=== PATIENT | female | born 1970 | race African-American/Black ===

== ENCOUNTER 2020-11-10 09:37 | Emergency (ER) | payer MEDICAID, SELFPAY ==
--- NOTE | ~2020-11-10 | CT_ITS ---
EXAMINATION: CT ABDOMEN AND PELVIS WITH CONTRAST CLINICAL INFORMATION: Lower abdominal pain and hematuria. COMPARISON: None TECHNIQUE: Multidetector volumetric images were obtained from the superior aspect of the liver through the pubic symphysis following administration 85 mL of Omnipaque 350 intravenous contrast. Sagittal and coronal reformatted images were obtained on the technologist's workstation. Oral contrast: No This CT examination was performed using dose optimization techniques as appropriate, variously including the following: *Automated exposure control *Adjustment of mA and/or kV according to patient size (this includes techniques or standardized protocols for targeted exams where dose is matched to indication/reason for exam; i.e. extremities or head) *Use of iterative reconstruction technique DLP: 479 mGy-cm FINDINGS: LUNG BASES: The visualized lung bases are unremarkable. Bilateral breast implants are noted. LIVER, GALLBLADDER, AND BILIARY TREE: The liver is normal in size, shape, and attenuation. At the junction of hepatic segments 4A and 4B (3:22), there is a 4 mm low-attenuation probable cyst or tiny hemangioma, too small to fully characterize with CT. No biliary ductal dilatation is present. The gallbladder is unremarkable with no evidence of radiopaque gallstones, gallbladder wall thickening, or obvious pericholecystic inflammatory changes. PANCREAS: Unremarkable. SPLEEN: Unremarkable. ADRENAL GLANDS: Unremarkable. KIDNEYS AND URETERS: The kidneys are normal in size, shape, and attenuation. No hydronephrosis, hydroureter, or calculi seen. No perinephric stranding. BLADDER: Largely decompressed and suboptimally evaluated. Bladder wall irregularity and thickening is questioned. GASTROINTESTINAL TRACT: There is a small hiatus hernia. The small and large bowel are unremarkable. No obstruction, free intraperitoneal air or abscess is seen. No significant diverticulosis or diverticulitis is seen. The appendix is unremarkable. ABDOMINAL WALL: No significant hernia is appreciated. LYMPH NODES: There are shotty mesenteric, pericecal and para-aortic lymph nodes. There are mildly enlarged bilateral external iliac lymph nodes, the largest on the right showing short axis diameters of 1.1 cm and 1.0 cm (3:76 and 77), and on the left 1.0 cm (3:75). There are shotty, nonpathologically enlarged bilateral inguinal lymph nodes. VASCULAR: Unremarkable. PELVIC VISCERA: The uterus and adnexa are unremarkable. OSSEOUS STRUCTURES: Unremarkable. CT/CT abdomen pelvis w con IMPRESSION: 1. No bowel obstruction, free intraperitoneal air or abscess is seen. There is no appendicitis or diverticulitis. 2. A 4 mm low-attenuation probable cyst or benign hemangioma is seen towards the junction of hepatic segments 4A and 4B. This is of doubtful clinical significance. If of clinical concern (i.e., history of hepatocellular disease or known malignancy), this can be further evaluated with ultrasound or MRI. 3. No urinary calculus or obstructive uropathy is seen. 4. There are mildly enlarged bilateral external iliac chain lymph nodes. These are nonspecific, and these should be managed on a clinical basis. Continued attention on imaging follow-up is recommended. 5. Question urinary bladder wall thickening and irregularity, with imaging significantly limited by suboptimal distention. Recommend clinical correlation, including correlation with the patient's most recent urinalysis.
[2020-11-10 09:57] VITALS: BP 120/84; PULSE 75; RESP 16; TEMP 36.9; O2SAT 100; BMI 27.8
[2020-11-10 10:32] LABS: Basophils Percent Auto 0.3 % (0-2); Eosinophils Absolute Auto 0.1 X10*3/uL (0.0-0.4); Eosinophils Percent Auto 0.8 % (0-4); Hematocrit 36.9 % (37-47); Hemoglobin 11.8 g/dl (12.0-16.0); Imm Gran Abs Auto 0.02 X10*3/uL (0.00-0.03); Imm Gran Pct Auto 0.3 % (0.0-0.4); Lymphocytes Absolute Auto 1.1 X10*3/uL (1.2-4.9); Lymphocytes Percent Auto 17.6 % (20-40); MANUAL DIFF FLAG NO; Mean Corpuscular Volume 84.4 fL (80-98); Mean Platelet Volume 9.5 fL (9.4-12.3); Monocytes Absolute Auto 0.3 X10*3/uL (0.1-1.2); Monocytes Percent Auto 4.2 % (2-11); Neutrophils Absolute Auto 4.7 X10*3/uL (2.0-8.3); Neutrophils Percent Auto 76.8 % (45-73); Platelet Count 280 X10*3/uL (160-400); Red Blood Count 4.37 X10*6/uL (4.20-5.50); Red Cell Distribution Width 13.1 % (11.0-16.0); White Blood Count 6.1 X10*3/uL (4.8-10.8)
[2020-11-10 10:55] LABS: INTERNATIONAL NORM RATIO 1.2 (0.9-1.1); Prothrombin Time 13.2 SEC (9.9-13.0)
[2020-11-10 10:57] LABS: Alanine Aminotransferase 26 U/L (0-31); Albumin Level 4.2 g/dL (3.5-5.0); Alkaline Phosphatase 107 U/L (39-117); Anion Gap 11 (12-20); Aspartate Amino Transferase 27 U/L (5-31); Bilirubin Total 0.8 mg/dL (0.0-1.0); Blood Urea Nitrogen 10 mg/dL (9-16); Calcium 9.5 mg/dL (8.4-10.2); Carbon Dioxide 28 mmol/L (22-29); Chloride 102 mmol/L (96-108); Creatinine Clr Calc Pharmacy 67.2; Estimated Glomerular Filt Rate > 60; Glucose Random 91 mg/dL (60-115); Magnesium 2.1 mg/dL (1.6-2.6); Potassium 4.1 mmol/L (3.3-5.1); Sodium 137 mmol/L (135-145); Total Protein 7.9 g/dL (6.5-8.0)
[2020-11-10 11:12] VITALS: BP 111/80; PULSE 77; RESP 16; TEMP 36.4; O2SAT 98
[2020-11-10 11:14] LABS: Glucose Urine UA 100 MG/DL (NEG); Leukocyte Esterase Urine 2+ (NEG); Nitrite Urine POS (NEG); Specific Gravity - Urine 1.015 (1.005-1.025); UACC Culture Trigger YES; Urine Blood 3+ (NEG); Urine Ketones 15 MG/DL (NEG); Urine Protein 3+ MG/DL (NEG-TRACE)
[2020-11-10 11:17] LABS: Appearance Urine CLOUDY; Color Urine RED
[2020-11-10 11:23] LABS: RBC Urine TNTC /HPF (0); Squamous Epithelial Cell Urine TRACE /LPF; WBC Urine 0-2 /HPF (0-4)
[2020-11-10 11:24] LABS: Renal Epithelial Cells Urine 1+ /LPF
[2020-11-10] MEDS: iohexoL 350 MG/ML 100 ML INFUS..BTL 85 ML IV (11:39)
--- NOTE | 2020-11-10 12:10 | ED.FEMALEGU ---
HPI - Female Genitourinary General Chief complaint: Urogenital-Female Stated complaint: vaginal bleeding Time Seen by Provider: 11/10/20 09:59 Source: patient Mode of arrival: ambulatory Limitations: no limitations History of Present Illness HPI Narrative: 50-year-old female with a past medical history of genital herpes presenting to the ED with complaints of suprapubic abdominal cramping with associated dysuria/hematuria and lower back pain since 03:00am. Reports that she was recently seen at [facility] on Monday for rash that she noticed was starting on her face and arms when she went there they placed her on antifungal creams and also antiviral acyclovir for possible herpes rash although patient reports no symptomatic relief in the rash is actually worsening. She reports she is sexually active with a new male for the past month unprotected. Although she denies any thoughts of STDs. She denies any headaches, dizziness, nausea/vomiting, chest pain, shortness of breath, dyspnea on exertion, orthopnea, palpitations, abnormal vaginal discharge, diarrhea, constipation, black or bloody stools or any other symptoms complaints or concerns at this time. MD elicited complaint: dysuria, pelvic pain and back pain Pertinent past history: other (General herpes) Onset (ago): hour(s) (Prior to arrival) Location of symptoms: suprapubic Severity: mild Female Urogenital Radiation: Non-Radiating Quality of pain: aching Consistency: constant Vaginal discharge: none Urinary symptoms: Dysuria, Urgency, Frequency and Hematuria Exacerbating factors: urination Relieving factors: none Associated symptoms: abdominal pain and rash Treatment prior to arrival: none Sexual activity: Yes and New Sexual Partners Patient : No Related Data Previous Rx's Medication Instructions Recorded cefuroxime axetil 500 mg tablet 500 mg PO BID 7 Days #14 tab 11/10/20 doxycycline hyclate 100 mg tablet 100 mg PO BID 21 Days #42 tab 11/10/20 Allergies Allergy/AdvReac Type Severity Reaction Status Date / Time prochlorperazine AdvReac Agitated Verified 11/10/20 10:00 [From Compazine] Review of Systems Review of Systems: Constitutional : Positive chills/subjective fevers, No Weight loss, No Night Sweats, No Fatigue, No Malaise ENT/Mouth: No ear pain, No sore throat, No Difficulty swallowing Cardiovascular : No Chest Pain, No SOB, No Dyspnea on Exertion, No Orthopnea, No Edema, No Palpitations Respiratory : No Cough, No Sputum, No Wheezing, No Dyspnea Gastrointestinal : Positive abdominal pain, No Nausea, No Vomiting, No Diarrhea, No blood streaked emesis, No coffee-ground emesis, No gross hematemesis, No blood streak stool, No gross hematochezia, No Melena Genitourinary : Positive Dysuria/hematuria/urinary frequency/urgency, No irregular bleeding, No Urinary Incontinence, No Flank Pain Musculoskeletal : No joint pain, No Myalgias, No Joint Swelling Skin : Positive Rash, No Skin Lesions Neuro : No Weakness, No Numbness, No Paresthesias, No Loss of Consciousness, NoDizziness, No Headache Psych : No Social Issues, Heme/Lymph: No Bruising, No Bleeding,No Lymphadenopathy Endocrine : No Polyuria, No Polydipsia, No Temperature Intolerance Yes all other systems are reviewed and are negative [facility] Past Medical History Attestation statement: The following information was validated with the patient. Surgical History H/O: hysterectomy Hx of breast surgery Social History Social History Advance Directives: No Advance Directives Information Provided: No Patient : No Physical Exam Vital Signs: Vital Signs: Last Vital Signs Temp 97.5 F 11/10/20 11:12 Pulse 77 11/10/20 11:12 Resp 16 11/10/20 11:12 BP 111/80 11/10/20 11:12 Pulse Ox 98 11/10/20 11:12 Body Mass Index 27.8 vital signs have been reviewed as normal and appeared to be correct. Blood pressure normal. Heart rate normal. Respiration rate normal. Temperature normal. Oxygen saturation normal. Appearance: Alert. Oriented X3. No acute distress. Head: Normal external exam. Normocephalic. Eyes: PERRLA. EOMI. Conjunctiva and sclera normal. Eyelids normal. ENT: Pharynx normal. Uvula midline. Moist mucous membranes. Neck: Normal inspection. Neck supple. FROM. No adenopathy. No meningeal signs. CVS: Normal heart rate and rhythm. Heart sound normal. No murmurs noted. Pulses normal throughout. Respiratory: No respiratory distress. Painless inspiration. Breath sounds normal. No wheezes/rales/rhonchi noted. Chest nontender. No accessory muscle usage noted or decreased air movement noted. Abdomen: Soft and mild tenderness to palpation suprapubically. Nondistended. No guarding. No rigidity. Bowel sounds normal in all 4 quadrants. No distention noted. No organomegaly noted. No visible injury noted. No rebound tenderness. Negative Rovsing sign. Negative obturator's sign. Negative psoas sign. Negative Hammonds sign. Back: No CVA tenderness. Full range of motion noted. Skin: Skin warm and dry. Normal skin color. Normal skin turgor. Scattered on the patient's bilateral arms and buttocks there are dark red almost purple colored round blanchable rash is possibly consistent with Lyme disease. No lesions/lacerations noted. Extremities: Extremities exhibit normal range of motion. Extremities nontender. Neuro: Oriented X 3. No motor deficit. No sensory deficit. Reflexes normal. Normal steady gait. Course Course Course Narrative: 10:15am - 50-year-old female with a past medical history of genital herpes presenting to the ED with complaints of suprapubic abdominal cramping with associated dysuria/hematuria and lower back pain since 03:00am. Reports that she was recently seen at [facility] on Monday for rash that she noticed was starting on her face and arms when she went there they placed her on antifungal creams and also antiviral acyclovir for possible herpes rash although patient reports no symptomatic relief in the rash is actually worsening. She reports she is sexually active with a new male for the past month unprotected. Although she denies any thoughts of STDs. Plan: Labs, UA, CT scan abdomen and pelvis with IV contrast, gonorrhea/chlamydia urine, syphilis and Lyme titertesting then re-evaluate. Reevaluation(s) Reevaluation #1: - Labs reviewed and pt c mild anemia. All other labs are within normal limits. UA with positive nitrates consistent with UTI. - CT scan abdomen and pelvis with IV contrast revealed a possible cyst or hemangioma toward the junction of hepatic segments. She also noted to have enlarged lymph nodes otherwise no other acute processes. - therefore I discussed this patient with both Dr. Rogers and Dr. Peralta and we all decided to tx patient with doxycycline for possible Lyme and Ceftin for UTI. - patient has pending lab results if any are positive I told her that we would contact her. I instructed her to return if any new or worsening symptoms to follow up with her primary care provider. Patient understands agrees with this plan. Time: 13:00 MDM - Female Genitourinary Medical Records Attestation: I reviewed the patient's medical records. Lab Data Attestation: I reviewed the patient's lab results. Result diagrams: 11/10/20 10:21 11/10/20 10:24 Labs: Lab Results 11/10/20 11/10/20 11/10/20 Range/Units 10:21 10:21 10:24 WBC 6.1 (4.8-10.8) X10*3/uL RBC 4.37 (4.20-5.50) X10*6/uL Hgb 11.8 L (12.0-16.0) g/dl Hct 36.9 L (37-47) % MCV 84.4 (80-98) fL MCH 27.0 (27.0-33.0) pg MCHC 32.0 (31.0-35.0) g/dl RDW 13.1 (11.0-16.0) % Plt Count 280 (160-400) X10*3/uL MPV 9.5 (9.4-12.3) fL Immature Gran % (Auto) 0.3 (0.0-0.4) % Neut % (Auto) 76.8 H (45-73) % Lymph % (Auto) 17.6 L (20-40) % [place] % (Auto) 4.2 (2-11) % Eos % (Auto) 0.8 (0-4) % Baso % (Auto) 0.3 (0-2) % Lymph # (Auto) 1.1 L (1.2-4.9) X10*3/uL [place] # (Auto) 0.3 (0.1-1.2) X10*3/uL Eos # (Auto) 0.1 (0.0-0.4) X10*3/uL Baso # (Auto) 0.0 (0.0-0.2) X10*3/uL Abs Immat Gran (auto) 0.02 (0.00-0.03) X10*3/uL Absolute Neuts (auto) 4.7 (2.0-8.3) X10*3/uL Absolute Nucleated RBC 0.000 (0.0-0.012) X10*3/uL Nucleated RBC % (auto) 0.0 (0.0-0.2) /100WBC PT 13.2 H (9.9-13.0) SEC INR 1.2 H (0.9-1.1) Sodium 137 (135-145) mmol/L Potassium 4.1 (3.3-5.1) mmol/L Chloride 102 (96-108) mmol/L Carbon Dioxide 28 (22-29) mmol/L Anion Gap 11 L (12-20) BUN 10 (9-16) mg/dL Creatinine 0.92 (0.5-1.4) mg/dL Estim Creat Clear Calc 67.2 Estimated GFR > 60 Random Glucose 91 (60-115) mg/dL Lactic Acid (0.5-2.0) mmol/L Calcium 9.5 (8.4-10.2) mg/dL Magnesium 2.1 (1.6-2.6) mg/dL Total Bilirubin 0.8 (0.0-1.0) mg/dL AST 27 (5-31) U/L ALT 26 (0-31) U/L Alkaline Phosphatase 107 (39-117) U/L Total Protein 7.9 (6.5-8.0) g/dL Albumin 4.2 (3.5-5.0) g/dL Urine Color Urine Appearance Urine pH (5.0-8.0) Ur Specific [place] (1.005-1.025) Urine Protein (NEG-TRACE) MG/DL Urine Glucose (UA) (NEG) MG/DL Urine Ketones (NEG) MG/DL Urine Blood (NEG) Urine Nitrite (NEG) Ur Leukocyte Esterase (NEG) Urine RBC (0) /HPF Urine WBC (0-4) /HPF Ur Squamous Epith Cells /LPF Ur Renal Epithelial Cell /LPF Urine Bacteria /LPF Chlam trachomat DNA PCR (Not Detect.) N.gonorrhoeae DNA (PCR) (Not Detect.) 11/10/20 11/10/20 11/10/20 Range/Units 10:24 11:04 11:05 WBC (4.8-10.8) X10*3/uL RBC (4.20-5.50) X10*6/uL Hgb (12.0-16.0) g/dl Hct (37-47) % MCV (80-98) fL MCH (27.0-33.0) pg MCHC (31.0-35.0) g/dl RDW (11.0-16.0) % Plt Count (160-400) X10*3/uL MPV (9.4-12.3) fL Immature Gran % (Auto) (0.0-0.4) % Neut % (Auto) (45-73) % Lymph % (Auto) (20-40) % [place] % (Auto) (2-11) % Eos % (Auto) (0-4) % Baso % (Auto) (0-2) % Lymph # (Auto) (1.2-4.9) X10*3/uL [place] # (Auto) (0.1-1.2) X10*3/uL Eos # (Auto) (0.0-0.4) X10*3/uL Baso # (Auto) (0.0-0.2) X10*3/uL Abs Immat Gran (auto) (0.00-0.03) X10*3/uL Absolute Neuts (auto) (2.0-8.3) X10*3/uL Absolute Nucleated RBC (0.0-0.012) X10*3/uL Nucleated RBC % (auto) (0.0-0.2) /100WBC PT (9.9-13.0) SEC INR (0.9-1.1) Sodium (135-145) mmol/L Potassium (3.3-5.1) mmol/L Chloride (96-108) mmol/L Carbon Dioxide (22-29) mmol/L Anion Gap (12-20) BUN (9-16) mg/dL Creatinine (0.5-1.4) mg/dL Estim Creat Clear Calc Estimated GFR Random Glucose (60-115) mg/dL Lactic Acid 1.0 (0.5-2.0) mmol/L Calcium (8.4-10.2) mg/dL Magnesium (1.6-2.6) mg/dL Total Bilirubin (0.0-1.0) mg/dL AST (5-31) U/L ALT (0-31) U/L Alkaline Phosphatase (39-117) U/L Total Protein (6.5-8.0) g/dL Albumin (3.5-5.0) g/dL Urine Color RED Urine Appearance CLOUDY Urine pH 7.0 (5.0-8.0) Ur Specific [place] 1.015 (1.005-1.025) Urine Protein 3+ H (NEG-TRACE) MG/DL Urine Glucose (UA) 100 H (NEG) MG/DL Urine Ketones 15 (NEG) MG/DL Urine Blood 3+ H (NEG) Urine Nitrite POS H (NEG) Ur Leukocyte Esterase 2+ H (NEG) Urine RBC TNTC H (0) /HPF Urine WBC 0-2 (0-4) /HPF Ur Squamous Epith Cells TRACE /LPF Ur Renal Epithelial Cell 1+ /LPF Urine Bacteria NONE /LPF Chlam trachomat DNA PCR NOT DETECTED (Not Detect.) N.gonorrhoeae DNA (PCR) NOT DETECTED (Not Detect.) Imaging Data CT scan of abdomen pelvis IV contrast: Attestation: I personally reviewed and interpreted this imaging study as follows: Radiologist's impression: FINDINGS: LUNG BASES: The visualized lung bases are unremarkable. Bilateral breast implants are noted. LIVER, GALLBLADDER, AND BILIARY TREE: The liver is normal in size, shape, and attenuation. At the junction of hepatic segments 4A and 4B (3:22), there is a 4 mm low-attenuation probable cyst or tiny hemangioma, too small to fully characterize with CT. No biliary ductal dilatation is present. The gallbladder is unremarkable with no evidence of radiopaque gallstones, gallbladder wall thickening, or obvious pericholecystic inflammatory changes.? PANCREAS: Unremarkable.? SPLEEN: Unremarkable.? ADRENAL GLANDS: Unremarkable.? KIDNEYS AND URETERS: The kidneys are normal in size, shape, and attenuation. No hydronephrosis, hydroureter, or calculi seen. No perinephric stranding. ? BLADDER: Largely decompressed and suboptimally evaluated. Bladder wall irregularity and thickening is questioned. GASTROINTESTINAL TRACT: There is a small hiatus hernia. The small and large bowel are unremarkable. No obstruction, free intraperitoneal air or abscess is seen. No significant diverticulosis or diverticulitis is seen. The appendix is unremarkable.? ABDOMINAL WALL: No significant hernia is appreciated.? LYMPH NODES: There are shotty mesenteric, pericecal and para-aortic lymph nodes. There are mildly enlarged bilateral external iliac lymph nodes, the largest on the right showing short axis diameters of 1.1 cm and 1.0 cm (3:76 and 77), and on the left 1.0 cm (3:75). There are shotty, nonpathologically enlarged bilateral inguinal lymph nodes. VASCULAR: Unremarkable. PELVIC VISCERA: The uterus and adnexa are unremarkable.? OSSEOUS STRUCTURES: Unremarkable.? CT/CT abdomen pelvis w con IMPRESSION: ? 1. No bowel obstruction, free intraperitoneal air or abscess is seen. There is no appendicitis or diverticulitis. ? 2. A 4 mm low-attenuation probable cyst or benign hemangioma is seen towards the junction of hepatic segments 4A and 4B. This is of doubtful clinical significance. If of clinical concern (i.e., history of hepatocellular disease or known malignancy), this can be further evaluated with ultrasound or MRI. ? 3. No urinary calculus or obstructive uropathy is seen. ? 4. There are mildly enlarged bilateral external iliac chain lymph nodes. These are nonspecific, and these should be managed on a clinical basis. Continued attention on imaging follow-up is recommended. ? 5. Question urinary bladder wall thickening and irregularity, with imaging significantly limited by suboptimal distention. Recommend clinical correlation, including correlation with the patient's most recent urinalysis. Critical Care Time Critical Care Time Critical Care Time: Yes Total Critical Care Time: 60 Attestation: I personally attest to this time spent taking care of the patient Discharge Plan Discharge Clinical Impression: Urinary tract infection, Erythema migrans (Lyme disease) Patient Disposition: Home, Self-Care Instructions: Lyme Disease (ED), Urinary Tract Infection in Women (ED), Tick Bite (ED) Additional Instructions: You have pending lab results if any are positive you will be contacted. Prescriptions: New doxycycline hyclate 100 mg tablet 100 mg PO BID 21 Days Qty: 42 RF: 0 cefuroxime axetil 500 mg tablet 500 mg PO BID 7 Days Qty: 14 RF: 0 Referrals: Physician,Unknown [Primary Care Provider] - 2 days (your pcp) Stand Alone Forms: Work/School Release Print Language: Irish
[2020-11-10 12:55] LABS: CT PCR NOT DETECTED (Not Detect.); NG PCR NOT DETECTED (Not Detect.)
[2020-11-10] MEDS: Phenazopyridine HCL 200 MG TABLET PO (13:38)
[2020-11-10 13:56] LABS: HCG Quantitative 3 mIU/mL
[2020-11-11 08:32] LABS: Lyme Abs Screen <0.90 index
[2020-11-11 09:05] LABS: Syphilis Screen Nonreactive (Nonreactive)
== END 2020-11-10 13:41 | disposition home or self-care (01) ==
PROVIDERS: Physician Assistant Medical; Emergency Provider Internal Medicine
DX: N39.0 Urinary tract infection, site not specified (principal); A69.20 Lyme disease, unspecified; R10.30 Lower abdominal pain, unspecified
CPT/HCPCS: 36415; 74177; 80053; 81001; 83605; 83735; 84702; 85025; 85610; 86617; 86618; 86780; 87040; 87086; 87491; 87591; 99284; Q9967

== ENCOUNTER → 2021-05-11 11:20 | Outpatient (BNVA) | payer MEDICAID, SELFPAY | PROVIDERS: PCP Advanced Practice Midwife; Visit Provider Obstetrics & Gynecology | DX: R87.620 Atypical squamous cells of undetermined significance on cytologic smear of vagina (ASC-US) (principal); R87.811 Vaginal high risk human papillomavirus (HPV) DNA test positive | CPT/HCPCS: 57420 ==

== ENCOUNTER 2021-05-24 13:17 | Outpatient (REF) | payer MEDICAID, SELFPAY ==
--- NOTE | ~2021-05-24 | MM_ITS ---
EXAMINATION: MM SCREENING DIGITAL BREAST TOMOSYNTHESIS, BILATERAL CLINICAL INFORMATION: Screening. Asymptomatic. The lifetime risk of breast cancer based on the Tyrer-Cuzick Model is 6%. COMPARISON: Mammography: 09/19/2018, 08/16/2017, 01/08/2016. TECHNIQUE: Digital mammography is performed in craniocaudal and mediolateral oblique views along with computer-aided detection (CAD). Digital breast tomosynthesis is performed in implant-displaced craniocaudal and implant-displaced mediolateral oblique views along with computer-aided detection (CAD). Synthesized 2D images are generated from the tomosynthesis. FINDINGS: There are scattered areas of fibroglandular density (ACR BI-RADS breast composition Category b). There are bilateral implants. Implant contours are smooth and similar to prior studies. Parenchymal pattern is similar to prior exams and there is no interval mass or architectural abnormality or abnormal calcifications. Skin contours are smooth. There are chronic bilateral prominent axillary nodes. Addendum from prior report 09/19/2018 notes history of outside lymph node tissue sampling yielding benign follicular hyperplasia. MM/MM tomosynthesis screen imp BI IMPRESSION: No significant changes from prior studies. ASSESSMENT: BI-RADS 2: Benign RECOMMENDATION: Routine annual mammography screening. This patient's information was entered into a reminder system with a target due date for their next mammogram.
== END 2021-05-24 13:18 | disposition home or self-care (01) ==
LOC: HO.MAMMO 13:17
PROVIDERS: PCP Advanced Practice Midwife; Visit Provider Advanced Practice Midwife
DX: Z12.31 Encounter for screening mammogram for malignant neoplasm of breast (principal)
CPT/HCPCS: 77063; 77067

== ENCOUNTER → 2022-04-21 10:50 | Outpatient (BNVA) | payer MEDICAID, SELFPAY | PROVIDERS: PCP Registered Nurse; Referring Provider Registered Nurse; Visit Provider Surgery | DX: L02.31 Cutaneous abscess of buttock (principal); Z80.0 Family history of malignant neoplasm of digestive organs | CPT/HCPCS: 99202 ==

== ENCOUNTER → 2022-05-05 15:03 | Outpatient (BNVA) | payer MEDICAID, SELFPAY | PROVIDERS: PCP Registered Nurse; Visit Provider Surgery | DX: L02.31 Cutaneous abscess of buttock (principal) | CPT/HCPCS: 99212 ==

== ENCOUNTER 2022-05-09 15:08 | Outpatient (REF) | payer MEDICAID, SELFPAY ==
--- NOTE | ~2022-05-09 | US_ITS ---
EXAMINATION: US THYROID CLINICAL INFORMATION: Thyroid nodule. COMPARISON: None TECHNIQUE: Linear transducer grayscale and color Doppler examination with attention to the region of the thyroid. FINDINGS: SIZE: Measurements of the thyroid lobes and nodules are given in sagittal, anteroposterior and transverse dimensions respectively. Right Thyroid Lobe: 4.1 x 1.5 x 1.8 cm, volume 5.9 mL. Parenchyma: The gland echotexture is homogeneous. Thyroid vascularity is normal. Left Thyroid Lobe: 3.9 x 0.9 x 1.4 cm, volume 2.6 mL. Parenchyma: The gland echotexture is homogeneous. Thyroid vascularity is normal. Isthmus: 0.4 cm in maximum AP dimension. Estimated total number of nodules greater than or equal to 1 cm: 0. [employer] nodules are described as follows: 1. Location: Right mid/inferior. Size: 0.25 x 0.51 x 0.30 cm, volume 0.02 mL. Nodule characteristics: Composition: Cannot be determined (2). Echogenicity: Anechoic (0). Shape: Taller than wide (3). Margins: Ill-defined (0). Echogenic Foci: None (0). ACR TI-RADS total points: 5 ACR TI-RADS category: 4 NODES: No lymphadenopathy is seen in the tissue surrounding the thyroid gland. US/US thyroid IMPRESSION: A small right thyroid lobe nodule is seen, as detailed. ACR TI-RADS RECOMMENDATION REFERENCE: Ultrasound-guided fine-needle aspiration, followup ultrasound, no further follow up. * TR1 (0 point) and TR2 (2 points): No FNA or follow up. * TR3 (3 points): FNA if more than or equal to 2.5 cm in maximum dimension, followup ultrasound in 1, 3 and 5 years if 1.5 to 2.4 cm in maximum dimension. * TR4 (4-6 points): FNA if more than or equal to 1.5 cm in maximum dimension, followup ultrasound in 1, 2, 3 and 5 years if 1 to 1.4 cm in maximum dimension. * TR5 (more than or equal to 7 points): FNA if more than or equal to 1 cm in maximum dimension, followup ultrasound every year for 5 years if 0.5 to 0.9 cm in maximum dimension. * TR3, TR4 or TR5 nodules that are below the size threshold for followup receive no follow up.
== END 2022-05-09 15:09 | disposition home or self-care (01) ==
LOC: HO.US 15:08
PROVIDERS: Visit Provider Registered Nurse
DX: E04.1 Nontoxic single thyroid nodule (principal)
CPT/HCPCS: 76536

== ENCOUNTER → 2022-06-02 13:04 | Outpatient (BNVA) | payer MEDICAID, SELFPAY | PROVIDERS: PCP Registered Nurse; Visit Provider Physician Assistant | DX: Z80.0 Family history of malignant neoplasm of digestive organs (principal); L02.31 Cutaneous abscess of buttock | CPT/HCPCS: 99202; 99212 ==

== ENCOUNTER 2022-07-06 13:18 | Outpatient (REF) | payer MEDICAID, SELFPAY ==
--- NOTE | ~2022-07-06 | CT_ITS ---
EXAMINATION: CT ABDOMEN AND PELVIS WITHOUT CONTRAST CLINICAL INFORMATION: Buttock abscess. History of buttock augmentation surgery. COMPARISON: None available. TECHNIQUE: Multidetector volumetric imaging was performed from the superior aspect of the liver through the pubic symphysis. Sagittal and coronal reformatted images were obtained on the technologist's workstation. This CT examination was performed using dose optimization techniques as appropriate, variously including the following: *Automated exposure control *Adjustment of mA and/or kV according to patient size (this includes techniques or standardized protocols for targeted exams where dose is matched to indication/reason for exam; i.e. extremities or head) *Use of iterative reconstruction technique DLP: 407 mGy-cm FINDINGS: LUNG BASES: The visualized lung bases are clear. There are bilateral breast implants. LIVER, GALLBLADDER, AND BILIARY TREE: The liver is normal in size, shape, and attenuation. No focal hepatic lesion or biliary ductal dilatation is present. The gallbladder is unremarkable with no evidence of radiopaque gallstones, gallbladder wall thickening, or obvious pericholecystic inflammatory changes. PANCREAS: Unremarkable. SPLEEN: Unremarkable. ADRENAL GLANDS: Unremarkable. KIDNEYS AND URETERS: The kidneys are normal in size, shape, and attenuation. No hydronephrosis, hydroureter, or calculi seen. No perinephric stranding. BLADDER: Not optimally distended and not well evaluated. GASTROINTESTINAL TRACT: The small and large bowel are unremarkable. The appendix is unremarkable. ABDOMINAL WALL: There is skin thickening and stranding of the subcutaneous fat of left buttock. There is an irregularly-shaped low-attenuation or cystic area measuring 0.6 x 1.4 x 1.9 cm axial image 67 series 3 and sagittal reconstructed image 17 questionable for small abscess. This extends to the most superficial gluteal muscle. The muscles are otherwise normal. No hernia. LYMPH NODES: Normal. VASCULAR: Unremarkable. PELVIC VISCERA: Uterus appears to have been removed. No pelvic mass. OSSEOUS STRUCTURES: Unremarkable. CT/CT abdomen pelvis wo IV con IMPRESSION: Skin thickening and stranding of the subcutaneous fat of the left buttock. Question small fluid collection in the fat measuring 0.6 x 1.4 x 1.9 cm extending to the most superficial muscle questionable for tiny superficial abscess. Fleischner guidelines were followed.
== END 2022-07-06 13:19 | disposition home or self-care (01) ==
LOC: HO.CT 13:18
PROVIDERS: Visit Provider Surgery
DX: L02.31 Cutaneous abscess of buttock (principal)
CPT/HCPCS: 74176

== ENCOUNTER → 2022-07-21 14:07 | Outpatient (BNVA) | payer MEDICAID, SELFPAY | PROVIDERS: PCP Registered Nurse; Visit Provider Surgery | DX: L02.31 Cutaneous abscess of buttock (principal) | CPT/HCPCS: 99212 ==

== ENCOUNTER 2022-07-27 10:09 | Outpatient (REF) | payer MEDICAID, SELFPAY ==
--- NOTE | ~2022-07-27 | MM_ITS ---
EXAMINATION: MM SCREENING DIGITAL BREAST TOMOSYNTHESIS, BILATERAL CLINICAL INFORMATION: Screening. Asymptomatic. The lifetime risk of breast cancer based on the Tyrer-Cuzick Model is 5.5%. COMPARISON: Mammography: May 24, 2021 and studies dating back to September 29, 2014. TECHNIQUE: Digital mammography is performed in craniocaudal and mediolateral oblique views along with computer-aided detection (CAD). Digital breast tomosynthesis is performed in implant-displaced craniocaudal and implant-displaced mediolateral oblique views along with computer-aided detection (CAD). Synthesized 2D images are generated from the tomosynthesis. FINDINGS: There are scattered areas of fibroglandular density (ACR BI-RADS breast composition Category b). There are no new significant masses, abnormal calcifications, or other abnormalities. Implant contours unremarkable without change. MM/MM tomosynthesis screen imp BI IMPRESSION: There are no significant changes from prior study. ASSESSMENT: BI-RADS 1: Negative RECOMMENDATION: Routine annual mammography screening. This patient's information was entered into a reminder system with a target due date for their next mammogram.
== END 2022-07-27 10:10 | disposition home or self-care (01) ==
LOC: HO.MAMMO 10:09
PROVIDERS: Visit Provider Registered Nurse
DX: Z12.31 Encounter for screening mammogram for malignant neoplasm of breast (principal)
CPT/HCPCS: 77063; 77067

== ENCOUNTER 2022-08-16 07:56 | Day surgery (SDC) | payer MEDICAID, SELFPAY ==
[2022-08-12 11:03] VITALS: BMI 28.5
--- NOTE | 2022-08-15 10:29 | HO.ANESPROP2 ---
Documented by User: Haleigh Mansfield NP 08/15/22 10:29 HPI - Anesthesia Eval Consult details Narrative: 52yo F for Left Exc Debridement of Buttock Scar PMFSH Active Problems Active Problems: All Active Problems (Updated 07/21/22 @ 14:43 by Jaison Bustamante MD) Left buttock abscess (Acute) Family history of colon cancer (Acute) Encounter for screening colonoscopy (Acute) Family history of pancreatic cancer (Acute) Gluteal abscess (Acute) Hypertension (Acute) Atypical squamous cell changes of undetermined significance (ASCUS) on vaginal cytology with positive high risk human papilloma virus (HPV) (Acute) Genital herpes (Acute) Past Medical History Medical History Family history of pancreatic cancer Gluteal abscess Hypertension Left buttock abscess Lupus Family History Family History Father Prostate CA Surgical History Surgical History H/O: hysterectomy Hx of breast surgery Social History Social History Household Members Other:: 5 adult children Alcohol intake: never Patient Tobacco Use Status: Never used Tobacco Use of substances other than those prescribed or required for medical reasons: No Are you DNR?: No Advance Directives: No Advance Directives Information Provided: Yes Current occupational status: unemployed Meds Allergies Allergy/AdvReac Type Severity Reaction Status Date / Time prochlorperazine AdvReac Agitated Verified 08/16/22 08:12 [From Compazine] Home Medications Medication Instructions Recorded Confirmed Last Taken Type olmesartan 5 mg tablet 10 mg PO DAILY 04/21/22 08/12/22 08/16/22 07:00 History hydroxychloroquine 200 mg tablet 200 mg PO BID 08/16/22 08/16/22 Unknown History Exam Exam Date and Time: August 15, 2022 1029 Height,Weight and Vital Signs: Height 5 ft 2 in Weight 70.76 kg Assessment and Plan Assessment Anesthesia Assessment: Chart Reviewed Documented by User: Jhonathan Gomes MD 08/16/22 09:38 PMFSH Past Medical History Medical History Family history of pancreatic cancer Gluteal abscess Hypertension Left buttock abscess Lupus Family History Family History Father Prostate CA Family history of problems with anesthesia: No Surgical History Surgical History H/O: hysterectomy Hx of breast surgery History of Problems with Anesthesia: No Social History Social History Household Members Other:: 5 adult children Alcohol intake: never Patient Tobacco Use Status: Never used Tobacco Use of substances other than those prescribed or required for medical reasons: No Are you DNR?: No Advance Directives: No Advance Directives Information Provided: Yes Current occupational status: unemployed Meds Allergies Allergy/AdvReac Type Severity Reaction Status Date / Time prochlorperazine AdvReac Agitated Verified 08/16/22 08:12 [From Compazine] Home Medications Medication Instructions Recorded Confirmed Last Taken Type olmesartan 5 mg tablet 10 mg PO DAILY 04/21/22 08/12/22 08/16/22 07:00 History hydroxychloroquine 200 mg tablet 200 mg PO BID 08/16/22 08/16/22 Unknown History Exam Airway Mallampati Class: II TM Dist: >3cm Neck ROM: Full Assessment and Plan Assessment Anesthesia Assessment: Anesthesia Plan Discussed Final Anesthetic Review Family History of Problems with Anesthesia: No History of Problems with Anesthesia: No NPO: Yes ASA Class: II Final Preanesthetic Review: No Changes in Pt Med Stat, Meds/Allgs Chart Reviewed, Consent Obtained/Reviewed and Anes Risks/Benef Reviewed Patient Risk: Low Procedure Risk: Low Anesthetic Plan Anesthetic Plan: GA Disposition: Standard PACU
[2022-08-16 08:13] VITALS: BMI 28.3
[2022-08-16 08:43] VITALS: BP 142/94; PULSE 61; RESP 15; TEMP 36.3; O2SAT 98
[2022-08-16] MEDS: Lactated Ringers 1,000 ML 100 ML IVCONT (08:51)
--- NOTE | 2022-08-16 09:30 | MHC.SHP ---
Pre-Procedural Eval Section A Date of Service: 08/16/22 The patient is an INPATIENT: No Changes since office visit: No Cold of Flu in the past 2 weeks, No New Medical Problems, No Changes in Medication and No Patient answered all questions The History & Physical has been completed within 30 days and I have reviewed it.: Yes Section B Chief Complaint: Cutaneous abscess of buttock Allergies: Allergies Allergy/AdvReac Type Severity Reaction Status Date / Time prochlorperazine AdvReac Agitated Verified 08/16/22 08:12 [From Compazine] Plan I have reviewed the history and physical and performed a pertinent physical examination on my patient. No changes have occurred unless specified. Time Spent With Patient Time: Total time managing care of this patient today ____ minutes.
--- NOTE | 2022-08-16 11:04 | P.OP_ITS ---
Operative Note Operative Note Date of Service: 08/16/22 Narrative: Preop diagnosis: Deep subcutaneous mass, left buttock, with history of injections for buttock augmentation Postop diagnosis: The same, likely fibrotic and granulomatous changes extending to the just above the gluteus muscle Procedure: Excision of deep subcutaneous mass Surgeon: Jaison Bustamante MD The patient is a 52-year-old female who had previously undergone multiple injections for buttock augmentation. She had subsequently developed a mass in the deep subcutaneous area along with pain and tenderness. She understood the technique of excision under anesthesia. She was aware of the risks, benefits, and alternatives. She was brought to the operating room and placed in prone position under general anesthesia using a laryngeal mask airway. The left buttock was prepped and draped in the usual sterile fashion. A surgical time-out was done. The patient received cefazolin 2 g IV preoperatively I infiltrated the planned line of incision with lidocaine 1%. I made an elliptical incision on the skin overlying this area of induration and scar using a blade 15. This was carried down through the full-thickness of the skin subcutaneous fat using electrocautery. I proceeded to periodically palpated for this indurated deep subcutaneous fat to follow this with the dissection. This extended all the way to just above the he has muscle. I circumferentially dissected this using cautery until this was delivered and sent as a specimen. This entire indurated area was about 5 cm wide and 5 cm deep. I then copiously irrigated this area of excision. I electrocautery to achieve hemostasis on was ink areas. Once hemostasis was confirmed, I reapposed the deep subcutaneous layers with Polysorb 2-0 interrupted sutures. The superficial subcutaneous layers were reapposed with Polysorb 3-0 interrupted sutures. Skin closure was achieved with full interrupted nylon 3-0 sutures. Dressings were applied. The area was infiltrated with Marcaine 0.5% for postop analgesia. The procedure was completed. The patient tolerated procedure well. There were no immediate complications. Initial and final counts of sponges and instruments were correct. Estimated b lood loss about 25 cc. The patient was extubated without difficulty and transferred to the recovery room with stable vital signs.
[2022-08-16 11:15] VITALS: BP 125/66; PULSE 71; RESP 10; TEMP 36.2; O2SAT 100
[2022-08-16 11:20] VITALS: BP 114/64; PULSE 54; RESP 12; O2SAT 100
[2022-08-16 11:25] VITALS: BP 123/66; PULSE 49; RESP 14; O2SAT 99
[2022-08-16 11:30] VITALS: BP 125/66; PULSE 59; RESP 18; TEMP 36.3; O2SAT 100
== END 2022-08-16 12:21 | disposition home or self-care (01) ==
PROVIDERS: PCP Registered Nurse; Visit Provider Surgery
PROC: (CPT 21931; principal; 2022-08-16 09:40)
DX: L02.31 Cutaneous abscess of buttock (principal); L72.0 Epidermal cyst; I10 Essential (primary) hypertension; M32.9 Systemic lupus erythematosus, unspecified; Z79.899 Other long term (current) drug therapy; Z80.0 Family history of malignant neoplasm of digestive organs; Z88.8 Allergy status to other drugs, medicaments and biological substances
CPT/HCPCS: 21931; 88304; J0690; J1100; J1885; J2250; J2405; J2795; J3010

== ENCOUNTER → 2022-08-29 15:24 | Outpatient (BNVA) | payer MEDICAID, SELFPAY | PROVIDERS: PCP Registered Nurse; Visit Provider Surgery | DX: Z48.817 Encounter for surgical aftercare following surgery on the skin and subcutaneous tissue (principal); Z87.2 Personal history of diseases of the skin and subcutaneous tissue | CPT/HCPCS: 99212 ==

== ENCOUNTER 2022-10-07 13:42 | Outpatient (REF) | payer OTHER, SELFPAY ==
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
== END 2022-10-07 13:43 | disposition home or self-care (01) ==
LOC: HO.HHCX 13:42
PROVIDERS: Visit Provider General Practice
DX: M54.2 Cervicalgia (principal)
CPT/HCPCS: 72050

== ENCOUNTER 2022-10-14 15:17 | Outpatient (REF) | payer OTHER, SELFPAY ==
[2022-10-14 16:11] LABS: MANUAL DIFF FLAG NO
[2022-10-14 16:28] LABS: Basophils Percent Auto 0.5 % (0-2); Eosinophils Absolute Auto 0.1 X10*3/uL (0.0-0.4); Hematocrit 38.6 % (37.0-47.0); Hemoglobin 12.3 g/dl (12.0-16.0); Imm Gran Abs Auto 0.02 X10*3/uL (0.00-0.03); Imm Gran Pct Auto 0.5 % (0.0-0.4); Lymphocytes Absolute Auto 1.5 X10*3/uL (1.2-4.9); Lymphocytes Percent Auto 37.9 % (20-40); Mean Corpuscular HGB Conc 31.9 g/dl (31.0-35.0); Mean Corpuscular Hemoglobin 27.3 pg (27.0-33.0); Mean Corpuscular Volume 85.8 fL (80.0-98.0); Mean Platelet Volume 10.3 fL (9.4-12.3); Monocytes Absolute Auto 0.4 X10*3/uL (0.1-1.2); Monocytes Percent Auto 10.6 % (2-11); Neutrophils Percent Auto 48.5 % (45-73); Platelet Count 276 X10*3/uL (160-400); Red Cell Distribution Width 12.9 % (11.0-16.0); White Blood Count 4.1 X10*3/uL (4.8-10.8)
[2022-10-14 17:16] LABS: Anion Gap 12 (12-20); Blood Urea Nitrogen 14 mg/dL (9-16); C Reactive Protein < 0.10 mg/dL (< or = 0.50); Calcium 9.8 mg/dL (8.4-10.2); Carbon Dioxide 27 mmol/L (22-29); Chloride 103 mmol/L (96-108); Estimated Glomerular Filt Rate > 60; Glucose Random 76 mg/dL (60-115); Potassium 3.8 mmol/L (3.3-5.1); Sodium 138 mmol/L (135-145)
[2022-10-14 17:20] LABS: Creatinine Urine 110.89 mg/dL; Total Protein Urine Random < 7 mg/dL (<12)
[2022-10-14 17:51] LABS: Erythrocyte Sedimentation Rate 14 MM/HR (0-20)
[2022-10-17 12:29] LABS: Complement C3 125 mg/dL (83-193)
[2022-10-24 12:28] LABS: DNAds, Crithidia Antibody Positive (Negative)
[2022-10-24 12:59] LABS: DNAds, Crithidia Antibody 1:20 titer (<1:10)
== END 2022-10-14 15:18 | disposition home or self-care (01) ==
LOC: HO.HHCL 15:17
PROVIDERS: Visit Provider Registered Nurse
DX: I10 Essential (primary) hypertension (principal); M32.9 Systemic lupus erythematosus, unspecified
CPT/HCPCS: 36415; 80048; 84156; 85025; 85652; 86140; 86160; 86255

== ENCOUNTER 2022-11-22 13:01 | Day surgery (SDC) | payer MEDICAID, SELFPAY ==
[2022-11-18 14:28] VITALS: BMI 28.9
--- NOTE | 2022-11-21 11:49 | HO.ANESPROP2 ---
Documented by User: Haleigh Mansfield NP 11/21/22 11:53 HPI - Anesthesia Eval Consult details Narrative: 52yo F for Colonoscopy s/p scar debridment 07/2022 with GA-LMA 4 PMFSH Active Problems Active Problems: All Active Problems (Updated 08/16/22 @ 08:12 by Harper Montez, ELVIN) Genital herpes (Acute) Atypical squamous cell changes of undetermined significance (ASCUS) on vaginal cytology with positive high risk human papilloma virus (HPV) (Acute) Encounter for screening colonoscopy (Acute) Family history of colon cancer (Acute) Left buttock abscess (Acute) Family history of pancreatic cancer (Acute) Gluteal abscess (Acute) Hypertension (Acute) Past Medical History Medical History Family history of pancreatic cancer Gluteal abscess Hypertension Left buttock abscess Lupus Family History Family History Father Prostate CA Family history of problems with anesthesia: No Surgical History Surgical History (Updated 11/22/22 @ 14:46 by Britni Siddiqi) H/O: hysterectomy Hx of breast surgery Hx of colonoscopy History of Problems with Anesthesia: No Social History Social History Household Members Other:: 5 adult children Alcohol intake: never Patient Tobacco Use Status: Never used Tobacco Current occupational status: unemployed Meds Allergies Allergy/AdvReac Type Severity Reaction Status Date / Time prochlorperazine AdvReac Agitated Verified 08/29/22 15:32 [From Compazine] Home Medications Medication Instructions Recorded Confirmed Last Taken Type olmesartan 5 mg tablet 10 mg PO DAILY 04/21/22 11/22/22 11/22/22 History hydroxychloroquine 200 mg tablet 200 mg PO BID 08/16/22 08/16/22 Unknown History Exam Exam Date and Time: November 21, 2022 1149 Height,Weight and Vital Signs: Height 5 ft 2 in Weight 71.668 kg Pertinent Lab Results Pertinent Lab Results: Laboratory Tests 10/14/22 10/14/22 15:24 15:24 WBC 4.1 L Hgb 12.3 Hct 38.6 Plt Count 276 Sodium 138 Potassium 3.8 Chloride 103 Carbon Dioxide 27 BUN 14 Creatinine 0.76 Assessment and Plan Assessment Anesthesia Assessment: Chart Reviewed Final Anesthetic Review Family History of Problems with Anesthesia: No History of Problems with Anesthesia: No Documented by User: Antelmo Nicolas MD 11/23/22 02:08 PMFSH Past Medical History Medical History Family history of pancreatic cancer Gluteal abscess Hypertension Left buttock abscess Lupus Family History Family History Father Prostate CA Surgical History Surgical History (Updated 11/22/22 @ 14:46 by Britni Siddiqi) H/O: hysterectomy Hx of breast surgery Hx of colonoscopy Social History Social History Household Members Other:: 5 adult children Alcohol intake: never Patient Tobacco Use Status: Never used Tobacco Current occupational status: unemployed Meds Allergies Allergy/AdvReac Type Severity Reaction Status Date / Time prochlorperazine AdvReac Agitated Verified 08/29/22 15:32 [From Compazine] Home Medications Medication Instructions Recorded Confirmed Last Taken Type olmesartan 5 mg tablet 10 mg PO DAILY 04/21/22 11/22/22 11/22/22 History hydroxychloroquine 200 mg tablet 200 mg PO BID 08/16/22 08/16/22 Unknown History Exam Airway Mallampati Class: III Neck ROM: Full Loose/Missing/Broken Teeth: Yes Assessment and Plan Assessment Anesthesia Assessment: Anesthesia Plan Discussed Final Anesthetic Review NPO: Yes ASA Class: II Final Preanesthetic Review: Meds/Allgs Chart Reviewed, Consent Obtained/Reviewed and Anes Risks/Benef Reviewed Patient Risk: Intermediate Procedure Risk: Intermediate Anesthetic Plan Anesthetic Plan: Agree w/ Assess. and Plan Disposition: Standard PACU
[2022-11-22] MEDS: Lactated Ringers 1,000 ML 100 ML IVCONT (13:43)
--- NOTE | 2022-11-22 13:56 | MHC.SHP ---
Pre-Procedural Eval Section A Date of Service: 11/22/22 Section B Chief Complaint: screening Details of Present Illness: father had CRC Relevant Family History (Specify if Yes): Yes Relevant Social History: None Present Medications: see Short Stay Collaborative assessment Medical History: Significant History (Family history of pancreatic cancer Gluteal abscess Hypertension Left buttock abscess Lupus) History of Previous Operations: Relevant previous surgery/procedure and date(s) (H/O: hysterectomy Hx of breast surgery) Allergies: Allergies Allergy/AdvReac Type Severity Reaction Status Date / Time prochlorperazine AdvReac Agitated Verified 08/29/22 15:32 [From Compazine] Review of Systems Sugical H&P ROS: Negative: Constitution, Cardiovascular, Respiratory, Neurological, Psychiatric, Hem-Onc, Allergic/Immunologic, Gastrointestinal, Genitourinary, Musculoskeletal, Integumentary, Endocrine and Eyes/Ears/Nose/Throat Exam Surgical H&P Exam: Normal: HEENT, Normal: Heart, Normal: Lungs, Normal: Extremities, Normal: Abdomen, Normal: Skin and Normal: Neurological Plan Diagnosis/Plan: Unchanged I have reviewed the history and physical and performed a pertinent physical examination on my patient. No changes have occurred unless specified. Time Spent With Patient Time: Total time managing care of this patient today ____ minutes.
--- NOTE | 2022-11-22 13:57 | W.PM.OPN ---
Operative Note Operative Note Date of Service: 11/22/22 Narrative: Operative Information Procedure Description: Colonoscopy Indication: screening Anesthesia: MAC COLONOSCOPY Instrument: Olympus variable stiffness pediatric scope 190L Colonoscopy Monitoring: Vital signs and clinical assessment, continuous EKG monitoring, Pulse oximetry, Carbon Dioxide monitoring and blood pressure monitoring were done throughout the procedure. Colon withdrawal time was 7 minutes. Procedure: The patient was placed in the left lateral decubitis position and pre-procedure medications were administered. After a digital rectal examination of the ano-rectum, the video colonoscope was inserted into the rectum and advanced through the colon to the cecum/TI. The colonoscope was slowly withdrawn in a retrograde panoramic fashion and the colon mucosa was carefully examined including a retroflexed view of the rectum. Findings and interventions are described below. Procedure Difficulty: easy Findings: Terminal Ileum-normal Cecum:normal Ascending Colon: normal Transverse Colon -normal Descending Colon:normal Sigmoid Colon: normal Rectum: Retroflexion with small internal hemorrhoids, grade I Anorectum - normal Colon preparation: [place] Bowel Preparation Scale Right colon; 3 Transverse colon: 3 Left colon; 3 (0 = Unprepared colon segment with mucosa not seen due to solid stool that cannot be cleared. 1 = Portion of mucosa of the colon segment seen, but other areas of the colon segment not well seen due to staining, residual stool and/or opaque liquid. 2 = Minor amount of residual staining, small fragments of stool and/or opaque liquid, but mucosa of colon segment seen well. 3 = Entire mucosa of colon segment seen well with no residual staining, small fragments of stool or opaque liquid) Impression and Post Procedure Diagnosis: internal hemorrhoids Plan: High fiber diet leaflet Avoid straining at stool, epsom salts and sitz bath, anusol supps or cream Repeat Colonoscopy in 5 years due to FH CRC in father or earlier if clinically indicated Above findings were reviewed with the patient and relevant handouts were provided if indicated.
[2022-11-22 14:07] VITALS: BP 119/79; PULSE 66; RESP 16; TEMP 36.3; O2SAT 98
[2022-11-22 14:34] VITALS: BP 112/70; PULSE 98; RESP 16; TEMP 36.3; O2SAT 98
[2022-11-22 14:49] VITALS: BP 112/76; PULSE 65; RESP 16; TEMP 36.1; O2SAT 98
== END 2022-11-22 15:16 | disposition home or self-care (01) ==
PROVIDERS: PCP Registered Nurse; Visit Provider Internal Medicine Gastroenterology
PROC: 0DJD8ZZ Inspection of Lower Intestinal Tract, Via Natural or Artificial Opening Endoscopic (ICD-10-PCS; CPT 45378; principal; 2022-11-22 15:10)
DX: Z12.11 Encounter for screening for malignant neoplasm of colon (principal); Z80.0 Family history of malignant neoplasm of digestive organs; K64.0 First degree hemorrhoids; L02.31 Cutaneous abscess of buttock; I10 Essential (primary) hypertension; M32.9 Systemic lupus erythematosus, unspecified; Z79.899 Other long term (current) drug therapy; Z88.8 Allergy status to other drugs, medicaments and biological substances; Z79.890 Hormone replacement therapy
CPT/HCPCS: 45378

== ENCOUNTER → 2022-11-22 13:01 | Outpatient (BNV) | payer MEDICAID, SELFPAY | PROVIDERS: PCP Registered Nurse; Visit Provider Internal Medicine Gastroenterology | DX: Z12.11 Encounter for screening for malignant neoplasm of colon (principal); K64.0 First degree hemorrhoids | CPT/HCPCS: 45378 ==

== ENCOUNTER 2022-12-15 08:02 | Outpatient (AMB) | payer MEDICAID, SELFPAY ==
--- NOTE | 2022-12-15 08:13 | A.OFFVIS_ITS ---
Intake Vital Signs 12/15/22 08:16 Height 5 ft 2 in Weight 155 lb BMI 28.3 BP 132/74 Blood Pressure Location Lt brachial Position Sitting Pulse 65 Intake Visit Reasons: s/p colon- Beck Intake Note: Patient follow for Colonoscopy results. Patient denies any GI issues. 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 Accompanied by: Self / Same As Patient Allergies prochlorperazine [From Compazine] Adverse Reaction (Verified 12/15/22 08:13) Agitated HPI HPI Comments History of Present Illness Details A 52-year-old female family history colon cancer (her father) follows up after index screening colonoscopy-she tolerated procedure well She she has no GI or general complaints Appetite is good bowels are Reviewed procedure report and recommendations No nausea, vomiting, hematemesis, hematochezia fever chills PFSH Medical History Lupus Left buttock abscess Family history of pancreatic cancer Gluteal abscess Hypertension Surgical History Hx of colonoscopy H/O: hysterectomy Hx of breast surgery Family History Father Prostate CA Social History Household Members Other:: 5 adult children Alcohol intake: never Patient Tobacco Use Status: Never used Tobacco Current occupational status: unemployed Female Reproductive History Menstrual Age of Menarche: 12 Physical Exam Vital Signs: Last Vital Signs Pulse 65 12/15/22 08:16 BP 132/74 12/15/22 08:16 BMI result Body Mass Index 28.3 Const General: cooperative, healthy appearing, comfortable, no acute distress and well developed Results Reviewed Results Reviewed: Impression and Post Procedure Diagnosis: internal hemorrhoids Plan: High fiber diet leaflet Avoid straining at stool, epsom salts and sitz bath, anusol supps or cream Repeat Colonoscopy in 5 years due to FH CRC in father or earlier if clinically indicated Above findings were reviewed with the patient and relevant handouts were provided if indicated. Assessment & Plan Assessment & Plan (1) Family history of colon cancer: Comment: Father colon cancer age 55- Code(s): Z80.0 - Family history of malignant neoplasm of digestive organs Plan: Repeat colonoscopy 5 years due to family history (2) Hemorrhoids: Code(s): K64.9 - Unspecified hemorrhoids Plan: High-fiber diet avoid straining Patient Instructions: Repeat asymptomatic colonoscopy 5 years due to family history Maintain high-fiber diet with hemorrhoids avoid straining Encouraged to call questions or concerns Coding Level of Care Code Est Pt Level 3 (68372) Diagnoses Family history of colon cancer Z80.0 Hemorrhoids K64.9 Time Spent (min) 20
[2022-12-15 08:16] VITALS: BP 132/74; PULSE 65; BMI 28.3
--- NOTE | 2022-12-15 08:19 | MHC.OFFVIS ---
Intake Vital Signs 12/15/22 08:16 Height 5 ft 2 in Weight 155 lb BMI 28.3 BP 132/74 Blood Pressure Location Lt brachial Position Sitting Pulse 65 Intake Visit Reasons: s/p colon- Beck Allergies prochlorperazine [From Compazine] Adverse Reaction (Verified 12/15/22 08:13) Agitated PFSH Medical History Lupus Left buttock abscess Family history of pancreatic cancer Gluteal abscess Hypertension Surgical History Hx of colonoscopy H/O: hysterectomy Hx of breast surgery Family History Father Prostate CA Social History Household Members Other:: 5 adult children Alcohol intake: never Patient Tobacco Use Status: Never used Tobacco Current occupational status: unemployed Female Reproductive History Menstrual Age of Menarche: 12 Physical Exam Vital Signs: Last Vital Signs Pulse 65 12/15/22 08:16 BP 132/74 12/15/22 08:16 BMI result Body Mass Index 28.3 Coding
== END 2022-12-15 09:33 | disposition home or self-care (01) ==
PROVIDERS: PCP Registered Nurse; Visit Provider Physician Assistant
DX: Z80.0 Family history of malignant neoplasm of digestive organs (principal); K64.9 Unspecified hemorrhoids
CPT/HCPCS: 99213

== ENCOUNTER → 2022-12-15 08:02 | Outpatient (BNVA) | payer MEDICAID, SELFPAY | PROVIDERS: PCP Registered Nurse; Visit Provider Physician Assistant | DX: K64.9 Unspecified hemorrhoids (principal); Z80.0 Family history of malignant neoplasm of digestive organs; Z98.890 Other specified postprocedural states | CPT/HCPCS: 99212 ==

== ENCOUNTER 2022-12-15 18:37 | Outpatient (REF) | payer MEDICAID, SELFPAY ==
[2022-12-16 03:41] LABS: CT PCR NOT DETECTED (Not Detect.); NG PCR NOT DETECTED (Not Detect.)
[2022-12-16 14:15] LABS: BV Int Neg Control Negative (Negative); BV Int Pos Control Positive (Positive)
== END 2022-12-15 18:38 | disposition home or self-care (01) ==
LOC: HO.HHCLNP 18:37
PROVIDERS: Visit Provider Student in an Organized Health Care Education/Training Program
DX: N89.8 Other specified noninflammatory disorders of vagina (principal)
CPT/HCPCS: 0353U; 87480; 87510; 87660

== ENCOUNTER 2022-12-19 10:56 | Outpatient (REF) | payer MEDICAID, SELFPAY ==
[2022-12-19 12:15] LABS: Appearance Urine Clear; Color Urine Yellow; Glucose Urine UA Negative (Negative); Leukocyte Esterase Urine Negative (Negative); Nitrite Urine Negative (Negative); PH 7.5 (5.0-9.0); Urine Blood Negative (Negative); Urine Ketones Negative (Negative); Urine Protein Negative (Neg-Trace)
[2022-12-19 12:24] LABS: Bacteria Urine None Seen (None Seen); Hyaline Casts Urine 0-2 /LPF (0-2); RBC Urine 0-2 /HPF (0-2); Squamous Epithelial Cell Urine 0-2 /HPF (0-2); WBC Urine 0-5 /HPF (0-5)
[2022-12-21 13:28] LABS: Cardiolipin IgG Ab <2.0 GPL-U/mL; Cardiolipin IgM Ab <2.0 MPL-U/mL
== END 2022-12-19 10:57 | disposition home or self-care (01) ==
LOC: HO.HHCL 10:56
PROVIDERS: Visit Provider Registered Nurse
DX: M32.9 Systemic lupus erythematosus, unspecified (principal)
CPT/HCPCS: 36415; 81001; 86147

== ENCOUNTER 2023-12-19 11:27 | Outpatient (REF) | payer MEDICAID, SELFPAY ==
[2023-12-19 13:20] LABS: MANUAL DIFF FLAG NO
[2023-12-19 13:34] LABS: Basophils Percent Auto 0.4 % (0-2); Eosinophils Percent Auto 0.5 % (0-4); Hemoglobin 12.3 g/dl (12.0-16.0); Imm Gran Abs Auto 0.31 X10*3/uL (0.00-0.03); Lymphocytes Absolute Auto 2.4 X10*3/uL (1.2-4.9); Lymphocytes Percent Auto 30.6 % (20-40); Mean Corpuscular HGB Conc 33.2 g/dl (31.0-35.0); Mean Corpuscular Hemoglobin 28.1 pg (27.0-33.0); Mean Corpuscular Volume 84.7 fL (80.0-98.0); Mean Platelet Volume 10.2 fL (9.4-12.3); Monocytes Absolute Auto 0.7 X10*3/uL (0.1-1.2); Neutrophils Absolute Auto 4.3 x10*3/uL (2.0-8.3); Neutrophils Percent Auto 55.5 % (45-73); Platelet Count 335 X10*3/uL (160-400); Red Blood Count 4.37 X10*6/uL (4.20-5.50); Red Cell Distribution Width 12.6 % (11.0-16.0); White Blood Count 7.7 X10*3/uL (4.8-10.8)
[2023-12-19 13:44] LABS: B Type Natriuretic Peptide < 10 pg/mL (<100)
[2023-12-19 13:49] LABS: Anion Gap 8 (12-20); Blood Urea Nitrogen 17 mg/dL (9-16); Calcium 9.3 mg/dL (8.4-10.2); Carbon Dioxide 31 mmol/L (22-29); Chloride 105 mmol/L (96-108); Estimated Glomerular Filt Rate > 60; Glucose Random 102 mg/dL (60-115); Potassium 3.9 mmol/L (3.3-5.1); Sodium 140 mmol/L (135-145)
[2023-12-19 14:17] LABS: Erythrocyte Sedimentation Rate 10 MM/HR (0-20)
== END 2023-12-19 11:28 | disposition home or self-care (01) ==
LOC: HO.HHCL 11:27
PROVIDERS: Visit Provider Internal Medicine
DX: M94.0 Chondrocostal junction syndrome [Tietze] (principal); I10 Essential (primary) hypertension
CPT/HCPCS: 36415; 80048; 83880; 85025; 85652

== ENCOUNTER 2024-03-25 10:48 | Outpatient (REF) | payer MEDICAID, SELFPAY ==
[2024-03-25 13:41] LABS: Anion Gap 9 (12-20); Blood Urea Nitrogen 17 mg/dL (9-16); Calcium 9.5 mg/dL (8.4-10.2); Carbon Dioxide 29 mmol/L (22-29); Chloride 109 mmol/L (96-108); Cholesterol 163 mg/dL (<200); Estimated Glomerular Filt Rate > 60; Glucose Random 82 mg/dL (60-115); HDL Cholesterol 50 mg/dL (>40); LDL Cholesterol Calculated 100 mg/dL (<100); Potassium 4.4 mmol/L (3.3-5.1); Sodium 143 mmol/L (135-145); Triglycerides 69 mg/dL (<150)
[2024-03-25 13:58] LABS: TSH reflex Free T4 1.46 uIU/mL (0.32-4.0)
== END 2024-03-25 10:49 | disposition home or self-care (01) ==
LOC: HO.HHCL 10:48
PROVIDERS: Visit Provider Registered Nurse
DX: I10 Essential (primary) hypertension (principal); L80 Vitiligo
CPT/HCPCS: 36415; 80048; 80061; 84443